=== PATIENT | female | born 1990 | race Caucasian/White ===

== ENCOUNTER 2016-10-19 19:23 | Observation (INO) | payer MEDICAID | END 2016-10-19 21:45 | disposition home or self-care (01) | LOC: L&D 19:23 → INTOOBSV 19:23 | PROVIDERS: ADMIT Specialist; ATTEND Specialist | DX: O62.9 Abnormality of forces of labor, unspecified (principal); O26.892 Other specified pregnancy related conditions, second trimester; R11.0 Nausea; R06.02 Shortness of breath; Z3A.20 20 weeks gestation of pregnancy | CPT/HCPCS: 76801; 76817; 99281; G0378 ==

== ENCOUNTER 2019-10-08 12:15 | Emergency (ER) | payer MEDICAID, OTHER ==
[~2019-10-08] VITALS: Ht 165.1 cm; Wt 91.0 kg
[2019-10-08] MEDS ORDERED: SODIUM CHLORIDE 0.9% 1,000 ML IV ONE (13:05)
[2019-10-08 14:21] LABS: BASOPHILS % 0.3 % (0.0-2.0); EOSINOPHILS % 0.6 % (0.0-5.0); HEMATOCRIT. 36.6 % (36.0-48.0); LYMPHOCYTES % 16.2 % (20.0-50.0); MEAN CORPUSCULAR HEMOGLOBIN 25.7 pg (28.0-32.0); MEAN CORPUSCULAR VOLUME 78.4 fL (81.0-99.0); MEAN PLATELET VOLUME 9.5 fl (7.4-10.4); MONOCYTES % 6.2 % (2.0-8.0); NEUTROPHILS % 76.7 % (40.0-76.0); PLATELET 303 x1000/uL (130-400); RED BLOOD CELL COUNT 4.67 mill/uL (4.2-5.4); RED CELL DISTRIBUTION WIDTH 21.1 % (11.6-14.6)
[2019-10-08 14:27] LABS: CHLORIDE 105 mEq/L (98-107)
[2019-10-08 14:42] VITALS: BP 128/78
[2019-10-08 15:01] LABS: CLARITY URINE CLOUDY (CLEAR); COLOR URINE YELLOW (YELLOW); KETONES URINE TRACE (NEGATIVE); LEUKOCYTE ESTERASE URINE 2+ (NEGATIVE); NITRITE URINE NEGATIVE (NEGATIVE); OCCULT BLOOD URINE 3+ (NEGATIVE); PH URINE 6.5 (4.5-8.0); PROTEIN URINE 1+ (NEGATIVE); SPECIFIC GRAVITY URINE 1.023 (1.005-1.030)
[2019-10-08 15:02] LABS: B-HCG QUANTITATIVE 74777 mIU/mL (<3)
== END 2019-10-08 16:19 | disposition home or self-care (01) ==
LOC: ER 12:15
DX: O20.0 Threatened abortion (principal); O26.892 Other specified pregnancy related conditions, second trimester; I49.9 Cardiac arrhythmia, unspecified; Z3A.14 14 weeks gestation of pregnancy
CPT/HCPCS: 36415; 76801; 76817; 80053; 81003; 81025; 84702; 85025; 86850; 86900; 86901; 87086; 93005; 99285; J7030